=== PATIENT | male | born 1955 | race Caucasian/White ===

== ENCOUNTER 2017-03-26 15:40 | Emergency (ER) | payer OTHER ==
[~2017-03-26] VITALS: Ht 185.4 cm; Wt 88.5 kg
[2017-03-26 15:47] VITALS: BP 143/98
[2017-03-26] MEDS ORDERED: ATOR20TA9 PO (15:56)
[2017-03-26] MEDS ORDERED: BUPR150T73 PO (15:56)
[2017-03-26] MEDS ORDERED: ASPI-496 PO (15:56)
== END 2017-03-26 18:13 | disposition home or self-care (01) ==
LOC: ED 17:50
DX: G62.9 Polyneuropathy, unspecified (principal); G54.8 Other nerve root and plexus disorders
CPT/HCPCS: 82962; 99284

== ENCOUNTER 2017-06-14 04:18 | Emergency (ER) | payer SELFPAY ==
[~2017-06-14] VITALS: Ht 185.4 cm; Wt 97.0 kg
[~2017-06-14 04:18] MED LIST: ASPI-496 PO; ATOR20TA9 PO; BUPR150T73 PO
[2017-06-14] MEDS ORDERED: DIPHENHYDRAMINE 25 MG CAPSULE ONE (04:47)
[2017-06-14] MEDS ORDERED: DIPHENHYDRAMINE 25 MG CAPSULE PO ONE (05:00)
[2017-06-14 05:43] VITALS: BP 154/97
== END 2017-06-14 06:37 | disposition home or self-care (01) ==
LOC: ED 06:11
DX: R22.0 Localized swelling, mass and lump, head (principal); T78.1XXA Other adverse food reactions, not elsewhere classified, initial encounter; X58.XXXA Exposure to other specified factors, initial encounter
CPT/HCPCS: 99283; J7512; Q0163